=== PATIENT | female | born 1990 | race Caucasian/White ===

== ENCOUNTER 2018-04-21 00:33 | Emergency (ER) | payer OTHER ==
[~2018-04-21] VITALS: Ht 160 cm; Wt 74.8 kg
[2018-04-21 00:50] LABS: BASOPHILS # (AUTO) 0.1 (0.0-0.1); BASOPHILS % 0.5 % (0.0-1.0); EOSINOPHILS # (AUTO) 0.2 (0.0-0.4); EOSINOPHILS % 1.9 % (0.0-6.0); HEMATOCRIT 37.3 % (34.2-44.1); HEMOGLOBIN 12.7 g/dL (12.0-16.0); LYMPHOCYTES # (AUTO) 3.3 (1.0-3.2); LYMPHOCYTES % 31.1 % (18.0-39.1); MEAN CORPUSCULAR HEMOGLOBIN 29.6 pg (28-32); MEAN CORPUSCULAR VOLUME 86.9 fL (81-99); MONOCYTES # (AUTO) 0.9 (0.2-0.8); MONOCYTES % 8.3 % (4.4-11.3); NEUTROPHILS # (AUTO) 6.1 (2.1-6.9); NEUTROPHILS % 57.9 % (38.7-80.0); PLATELET COUNT 318 x10e3/uL (140-360); RED BLOOD COUNT 4.29 x10e6/uL (3.6-5.1)
[2018-04-21 01:07] LABS: ALANINE AMINOTRANSFERASE 15 IU/L (0-55); ALBUMIN 3.9 g/dL (3.5-5.0); ALBUMIN/GLOBULIN RATIO 1.1 (0.8-2.0); ALKALINE PHOSPHATASE 64 IU/L (40-150); ANION GAP 14.5 mmol/L (8-16); BLOOD UREA NITROGEN 20 mg/dL (7-26); BUN/CREATININE RATIO 17 (6-25); CALCIUM 9.6 mg/dL (8.4-10.2); CARBON DIOXIDE 23 mmol/L (22-29); CHLORIDE 104 mmol/L (98-107); CREATINE KINASE 74 IU/L (29-168); CREATININE, SERUM 1.18 mg/dL (0.57-1.11); EST GLOMERULAR FILTRATION RATE 55 ML/MIN (60-); GLUCOSE 97 mg/dL (74-118); POTASSIUM 3.5 mmol/L (3.5-5.1); SODIUM 138 mmol/L (136-145)
[2018-04-21] MEDS ORDERED: ACETAMINOPHEN 325 MG TAB PO PRN (01:15)
--- NOTE | 2018-04-21 01:39 | Diagnostic Imaging Report ---
EXAMINATION: Head and cervical spine CT without contrast. HISTORY: Syncope, possible seizure COMPARISON: None. TECHNIQUE: Multidetector axial images were obtained with, without contrast from the foramen magnum to the vertex and through the cervical spine. The images were reconstructed using brain and bone algorithms. Thin section brain images were reformatted into coronal and sagittal planes. HEAD CT FINDINGS: Skull: No lytic or blastic lesions. No fractures. Parenchyma: Normal. No mass, hemorrhage or CT evidence of acute vascular insult. Brain volume: Normal for age. Ventricles: No hydrocephalus or displacement. Arteries: No density suggestive of thrombus. Dural sinuses: No abnormal density. Extra-axial spaces: No abnormal density. Foramen magnum: No mass, Chiari malformation, or basilar invagination. Sella: No obvious mass. Paranasal/mastoid sinuses: Imaged portions unremarkable. CERVICAL SPINE CT FINDINGS: Alignment:Normal alignment and lordosis. Soft tissues: Normal. Vertebrae: Normal height and density. No acute fracture, infection or neoplasm. Degenerative changes: None IMPRESSION: Head CT: No intracranial abnormalities Cervical spine CT: No acute fractures or dislocations. Note: Acute post traumatic spinal cord, vascular or ligamentous injury cannot adequately be assessed with CT. Signed by: Dr. Tricia Alves M.D. on 04/21/2018 1:35 AM
[2018-04-21 01:49] LABS: AMPHETAMINES SCREEN,URINE NEGATIVE (NEGATIVE); BENZODIAZEPINES SCREEN,URINE NEGATIVE (NEGATIVE); PHENCYCLIDINE SCREEN,URINE NEGATIVE (NEGATIVE)
[2018-04-21 01:50] LABS: CLARITY,URINE SL CLOUDY (CLEAR); COLOR,URINE YELLOW (YELLOW); LEUKOCYTE ESTERASE ,URINE TRACE (NEGATIVE); NITRITE,URINE NEGATIVE (NEGATIVE); PROTEIN,URINE DIPSTICK NEGATIVE (NEGATIVE)
[2018-04-21 01:51] LABS: BILIRUBIN,URINE NEGATIVE (NEGATIVE); KETONES,URINE NEGATIVE (NEGATIVE); URINE UROBILINOGEN 0.2 mg/dL (0.2 - 1)
[2018-04-21 01:57] LABS: BACTERIA,URINE FEW /HPF; MUCUS,URINE MANY (RARE)
[2018-04-21 01:58] LABS: EPITHELIAL CELLS,URINE FEW /LPF
[2018-04-21] MEDS ORDERED: CEFTRIAXONE SOD 1 GM VIAL IV ONE (02:00)
[2018-04-21] MEDS ORDERED: CEFDINIR300 MG PO (02:02)
[2018-04-21 02:03] VITALS: BP 94/71
== END 2018-04-21 03:01 | disposition home or self-care (01) ==
LOC: ER 00:33
DX: G40.309 Generalized idiopathic epilepsy and epileptic syndromes, not intractable, without status epilepticus (principal); N30.90 Cystitis, unspecified without hematuria
CPT/HCPCS: 36415; 70450; 72125; 80053; 80307; 81001; 82550; 82553; 84484; 84702; 85025; 93005; 96374; 99284; J0696

== ENCOUNTER → 2018-11-08 | Outpatient (CLI) | payer BC ==
[~2018-11-08] MED LIST: CEFDINIR300 MG PO
--- NOTE | 2018-11-08 13:08 | Diagnostic Imaging Report ---
TECHNIQUE: Ultrasound evaluation of the abdomen. Color doppler was utilized to supplement the evaluation. HISTORY: Left lower quadrant abdominal pain, additional history provided: Nonspecific abdominal pain, no clinical concern for diverticulitis COMPARISON: Images from Abdominal ultrasound December 19, 2013 DISCUSSION: LIVER: No focal lesion is identified. The liver measures 15.9 cm in the right midclavicular line. BILIARY: The gallbladder is without evidence for gallstones, gallbladder wall thickening or pericholecystic fluid. Minimal echogenic sludge within the gallbladder. The sonographic Richey's sign is reported as negative. The common bile duct measures 0.3 cm. PANCREAS: Incompletely visualized due to overlying bowel gas, but no abnormality identified involving the visualized portions of the pancreas. SPLEEN: No splenomegaly. PERITONEUM: No free fluid. KIDNEYS: Right: Measures 11 cm in length. No hydronephrosis or solid mass lesion identified. Left: Measures 12 cm in length. No hydronephrosis or solid mass lesion identified. VASCULATURE: Aorta: Visualized portions appear unremarkable. Interior vena cava: Visualized portions appear unremarkable. Portal Vein: Nondilated with hepatopedal flow. IMPRESSION: 1. No acute sonographic abnormality. 2. Borderline enlargement of the liver. Discussed with Dr. Lien Luis via phone on November 08, 2018 at 1302. Signed by: Dr. Saad Edmondson D.O., M.M.M. on 11/08/2018 1:05 PM
== END ==
LOC: US 11:36
PROVIDERS: ATTEND Family Medicine
DX: R10.32 Left lower quadrant pain (principal)
CPT/HCPCS: 76700

== ENCOUNTER 2021-01-29 12:03 | Emergency (ER) | payer BC, OTHER ==
[~2021-01-29] VITALS: Ht 160 cm; Wt 97.1 kg
[~2021-01-29 12:03] MED LIST changes: +NAPROSYN500 MG PO
[2021-01-29] MEDS ORDERED: ASPIRIN 81 MG CHEW TAB PO ONE (12:15)
[2021-01-29 12:20] LABS: BASOPHILS # (AUTO) 0.1 (0.0-0.1); BASOPHILS % 0.6 % (0.0-1.0); EOSINOPHILS % 0.2 % (0.0-6.0); HEMATOCRIT 36.1 % (34.2-44.1); HEMOGLOBIN 11.5 g/dL (12.0-16.0); LYMPHOCYTES # (AUTO) 1.4 (1.0-3.2); LYMPHOCYTES % 14.9 % (18.0-39.1); MEAN CORPUSCULAR HGB CONC 31.9 g/dL (31-35); MEAN CORPUSCULAR VOLUME 87.8 fL (81-99); MONOCYTES # (AUTO) 0.6 (0.2-0.8); MONOCYTES % 6.8 % (4.4-11.3); NEUTROPHILS # (AUTO) 7.3 (2.1-6.9); NEUTROPHILS % 77.3 % (38.7-80.0); PLATELET COUNT 361 x10e3/uL (140-360); RED BLOOD COUNT 4.11 x10e6/uL (3.6-5.1); RED CELL DISTRIBUTION WIDTH 13.9 % (11.7-14.4)
[2021-01-29 12:45] LABS: ALANINE AMINOTRANSFERASE 12 IU/L (0-55); ALBUMIN 3.9 g/dL (3.5-5.0); ALBUMIN/GLOBULIN RATIO 1.1 (0.8-2.0); ALKALINE PHOSPHATASE 76 IU/L (40-150); ANION GAP 20.5 mmol/L (8-16); BLOOD UREA NITROGEN 13 mg/dL (7-26); BUN/CREATININE RATIO 13 (6-25); CALCIUM 8.7 mg/dL (8.4-10.2); CARBON DIOXIDE 18 mmol/L (22-29); CHLORIDE 107 mmol/L (98-107); CREATINE KINASE 85 IU/L (29-168); CREATININE, SERUM 0.98 mg/dL (0.57-1.11); EST GLOMERULAR FILTRATION RATE > 60 ML/MIN (60-); GLUCOSE 118 mg/dL (74-118); POTASSIUM 3.5 mmol/L (3.5-5.1); SODIUM 142 mmol/L (136-145)
[2021-01-29] MEDS ORDERED: DEXAMETHASONE SOD PHOS 10 MG/1 ML VIAL IV ONE (13:15)
[2021-01-29] MEDS ORDERED: DEXAMETHASONE SOD PHOS INJ 4 MG/ML VIAL ONE (13:43)
[2021-01-29] MEDS ORDERED: ALBUTEROL/IPRATROPIUM 3 ML NEB NEB ONE (13:45)
[2021-01-29] MEDS ORDERED: VENTOLIN HFA18 GM INH (15:03)
[2021-01-29] MEDS ORDERED: PREDNISONE20 MG PO (15:03)
[2021-01-29 15:32] VITALS: BP 113/55
== END 2021-01-29 15:33 | disposition home or self-care (01) ==
LOC: ER 12:06
DX: J45.909 Unspecified asthma, uncomplicated (principal); G40.909 Epilepsy, unspecified, not intractable, without status epilepticus; Z20.822 Contact with and (suspected) exposure to COVID-19
CPT/HCPCS: 36415; 70360; 71045; 80053; 82550; 82553; 84484; 84702; 85025; 85379; 93005; 94640; 99284; J1100 ×2; U0002